=== PATIENT | female | born 1970 | race Caucasian/White ===

== ENCOUNTER 2017-02-17 08:55 | Day surgery (SDC) | payer OTHER ==
[2017-01-28 11:21] VITALS: BMI 22.6
[2017-02-17] MEDS ORDERED: MIDAZOLAM HCL 2 MG/2 ML SINGLE DOSE VIAL ONE (10:12)
[2017-02-17] MEDS ORDERED: ROCURONIUM BROMIDE 50 MG/5 ML VIAL ONE (10:20)
[2017-02-17] MEDS ORDERED: PROPOFOL 20 ML ONE (10:20)
[2017-02-17] MEDS ORDERED: ceFAZolin SODIUM 1 GM VIAL ONE ×2 (10:25→11:06)
[2017-02-17] MEDS ORDERED: GENTAMICIN SO4 80 MG/2 ML VIAL ONE (10:25)
[2017-02-17] MEDS ORDERED: LIDOCAINE 1%-EPI 1:100,000 30 ML MDV IJ ONE (10:25)
[2017-02-17] MEDS ORDERED: LIDOCAINE HCL 1%, 10 MG/ML (20ML VIAL) ONE (10:45)
[2017-02-17] MEDS ORDERED: DEXAMETHASONE SOD PHOSPHATE 4 MG/1 ML VIAL ONE (11:11)
[2017-02-17] MEDS ORDERED: ONDANSETRON 4 MG/2 ML VIAL ONE (11:11)
[2017-02-17] MEDS ORDERED: LIDOCAINE 1%/EPI 1:100000 (20 ML MULTI DOSE VIAL) INF ONE (11:23)
[2017-02-17] MEDS ORDERED: ePHEDrine SULFATE 50 MG/1 ML AMPULE ONE (11:29)
[2017-02-17] MEDS ORDERED: ACETAMINOPHEN 325 MG TABLET (FP) PO PRN (12:33)
[2017-02-17] MEDS ORDERED: oxyCODONE HCL 5 MG TABLET PO PRN (12:33)
[2017-02-17] MEDS ORDERED: ONDANSETRON 4 MG/2 ML VIAL IVPUSH PRN (12:39)
--- NOTE | 2017-02-17 12:41 | OP ---
Operative Note - Note: Operative Date: 02/17/17 Pre-Operative Diagnosis: Aquired chest wall deformity s/p breast reconstruction Operation: bilateral implant exchange with fat grafting from abdomen, flanks, and outer thighs. Findings: same Implants: Silicone implants. Surgeon: Grady Mccord Paving Supervisor: Batsheva Keith Anesthesiologist/PROCESS DEVELOPMENT ENGINEER: Ama Vazquez Anesthesia: Local, MAC Estimated Blood Loss (mls): 20 Drains & Tubes with Location: none Operative Report Dictated: Yes
[2017-02-17] MEDS ORDERED: LACTATED RINGERS SOLUTION 1,000 ML IV SCH (12:45)
[2017-02-17 14:52] VITALS: TEMP 97.4
[2017-02-17 15:08] VITALS: BP 122/76; PULSE 84
--- NOTE | 2017-02-19 10:04 | OP ---
DATE OF OPERATION: 02/17/2017 SURGEON: Mathew Mccord MD CHIEF TECHNOLOGIST: MARKO Montgomery PREOPERATIVE DIAGNOSES: 1. 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 2. Asymmetry of reconstructed chest wall. 3. Mechanical complication of breast implant. POSTOPERATIVE DIAGNOSES: 1. 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 2. Asymmetry of reconstructed chest wall. 3. Mechanical complication of breast implant. OPERATIVE PROCEDURE: 1. Right breast reconstruction utilizing other technique. 2. Left breast reconstruction utilizing other technique. 3. Capsulectomy, removal, and replacement of right breast implant. 4. Capsulectomy, removal, and replacement of left breast implant. OPERATIVE INDICATION: The patient is a young woman who had undergone bilateral mastectomy in the past and now presents with asymmetry of the reconstructed chest wall and mechanical complication of the implant causing the deformity. The risks and benefits, surgical versus nonsurgical alternatives as well as material complications of the procedure were described to the patient on multiple occasions preoperatively. She agreed to the planned procedure. The patient was marked in a standard position preoperatively with outline of the incisions and discussion of the procedure itself. She agreed to the planned procedure. OPERATIVE PROCEDURE IN DETAIL: The patient was taken to the operating room, and after induction of general anesthesia in supine position, both arms were extended and padded. Venodyne boots were placed. The entire chest wall was prepped with ChloraPrep solution over its entire extent. At this point, 1% local lidocaine anesthesia and 1:100,000 epinephrine was injected into the mastectomy scars in preparation for the procedure as well as the flank area. At this point, an incision was made in the right mastectomy scar down through the skin through the subcutaneous tissue down to the underlying capsule. The capsule on the right breast was then opened, and I performed a capsulotomy and removed portions of the capsule for capsulectomy. The implant was also removed and sent for pathologic diagnosis. The pocket was copiously irrigated and capsulotomy performed, and attention was turned to the left breast. The exact same procedure was carried out symmetrically on the opposite left breast also removing the implant and readying the pocket for reconstructive purposes to correct the deformity. At this point, an incision was made down through the skin and subcutaneous tissue in the flank area and then tissue was then harvested for reconstructive purposes to correct the gross deformity of the chest wall. This tissue was harvested and then transferred to the back table where it was cleansed and prepared for reconstruction. At this point, an implant was chosen for the breast volume. An implant of [employer] cohesive breast implant of style SCF 560 mL was placed into the right breast pocket. Good shape and contour was seen and then exact same implant was opened and placed into the left breast pocket. The capsule was then closed using 2-0 PDS suture in the deep capsule and fascia in running fashion for watertight closure. The skin and subcutaneous was then advanced and closed upon itself. The exact same procedure was carried out symmetrically on the left breast also closing the pocket and advancing the skin. Then the tissue for reconstruction was transferred to the breast on the superior, medial, and central portions of the right breast and independently in the medial, central, inferior, and lateral portions of the left breast. The patient was placed into the sitting position. She had good symmetry on the chest wall after placement of the tissue, and symmetry was achieved at this point. All wounds were dressed sterilely after closure with interrupted and running sutures with Dermabond and Steri-Strips. The patient was awakened, placed into a fluff dressing and a surgery bra. She was awakened, extubated, and transferred to the recovery room in satisfactory. MATHEW MCCORD M.D. [id number]
--- NOTE | 2017-02-21 08:49 | PATH ---
Surgical Pathology Report Patient Name: LOGAN JERRY Med. Rec. #: [id number] /Age/Gender: 1970 (Age: 46) / F Account: [id number] Location: [facility] Taken: 02/17/2017 Received: 02/17/2017 Reported: 02/21/2017 Physicians: Grady Mccord Specimen(s) Received A: RIGHT BREAST EXPLANT B: LEFT BREAST EXPLANT Clinical History Post mastectomy Final Diagnosis A. 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 B. BODY ROLLING MACHINE TENDER, LEFT BREAST, REMOVAL: BREAST IMPLANT (GROSS ONLY). Comment: See also [id number]. Electronically Signed Sai Daigle M.D. Gross Description A. Received fresh labeled "right breast explant," is a 13 cm in diameter x 4 cm in depth clear, rubbery, disc-shaped object, consistent with a breast implant. No soft tissue is present. No sections are submitted, gross only. B. Received fresh labeled "left breast explant," is a 13 cm in diameter x 4 cm in depth clear, rubbery, disc-shaped object, consistent with a breast implant. No soft tissue is present. No sections are submitted, gross only. /02/18/2017 saudi02/18/2017
== END 2017-02-17 14:20 | disposition home or self-care (01) ==
LOC: FASU 08:55
PROVIDERS: ATTEND Plastic Surgery
PROC: 0HRV0JZ Replacement of Bilateral Breast with Synthetic Substitute, Open Approach (ICD-10-PCS; 2017-02-17)
PROC: 0HRV07Z Replacement of Bilateral Breast with Autologous Tissue Substitute, Open Approach (ICD-10-PCS; 2017-02-17)
PROC: 0HPU0JZ Removal of Synthetic Substitute from Left Breast, Open Approach (ICD-10-PCS; principal; 2017-02-17 10:30)
PROC: 0HPT0JZ Removal of Synthetic Substitute from Right Breast, Open Approach (ICD-10-PCS; 2017-02-17 10:30)
DX: M95.4 Acquired deformity of chest and rib (principal); Z90.13 Acquired absence of bilateral breasts and nipples; N65.1 Disproportion of reconstructed breast; T85.49XA Other mechanical complication of breast prosthesis and implant, initial encounter; Y83.8 Other surgical procedures as the cause of abnormal reaction of the patient, or of later complication, without mention of misadventure at the time of the procedure; Y92.9 Unspecified place or not applicable
CPT/HCPCS: 84703; 88300-TC; 94760